=== PATIENT | female | born 1960 | race American Indian/Alaskan Native ===

== ENCOUNTER 2017-01-07 13:09 | Emergency (ER) | payer MEDICARE, OTHER ==
[2017-01-07 14:25] LABS: Basophils % (Auto) 0.2 % (0.0-1.8); Eosinophils % (Auto) 1.5 % (0.0-4.3); Hematocrit 41.5 % (30.3-42.9); Hemoglobin 13.5 gm/dl (10.1-14.3); Mean Corpuscular HGB Conc 33 % (30-34); Mean Corpuscular Hemoglobin 27 pg (28-32); Mean Corpuscular Volume 84 fl (79-97); Platelet Count 204 K/mm3 (140-440); Red Blood Count 4.96 M/mm3 (3.65-5.03); Red Cell Distribution Width 13.8 % (13.2-15.2); White Blood Count 11.5 K/mm3 (4.5-11.0)
[2017-01-07 14:25] LABS: Bilirubin,Urine NEG (Negative); Blood,Urine SM (Negative); Ketones,Urine NEG (Negative); Leukocyte Esterase,Urine NEG (Negative); Nitrite,Urine NEG (Negative); Protein,Urine <15 mg/dL mg/dL (Negative); Urobilinogen,Urine < 2.0 mg/dL (<2.0); WBC,Urine < 1.0 /HPF (0.0-6.0)
[2017-01-07 14:36] LABS: Alanine Aminotransferase 15 units/L (7-56); Albumin 4.4 g/dL (3.9-5); Alkaline Phosphatase 49 units/L (35-129); Anion Gap 16 mmol/L; BUN/Creatinine Ratio 18.75; Bilirubin,Total 0.3 mg/dL (0.1-1.2); Blood Urea Nitrogen 15 mg/dL (7-17); Calcium 10.2 mg/dL (8.4-10.2); Carbon Dioxide 25 mmol/L (22-30); Chloride 101.3 mmol/L (98-107); Glucose 93 mg/dL (65-100); Lipase 84 units/L (13-60); Potassium 4.4 mmol/L (3.6-5.0); Sodium 138 mmol/L (137-145); Total Protein 8.7 g/dL (6.3-8.2)
[2017-01-07 17:24] VITALS: BP 149/94
[2017-01-07] MEDS ORDERED: REGLAN PO ONE (18:58)
[2017-01-07] MEDS ORDERED: ALUM-MAG HYDROX-SIMETH 200-200-20MG/5ML PO ONE (18:58)
[2017-01-07] MEDS ORDERED: BENTYL PO ONE (18:58)
--- NOTE | 2017-01-07 18:59 | Emergency Department Report ---
ED General Adult HPI - General Chief complaint: Abdominal Pain Stated complaint: SHARP RT ABD PAIN /VOMITTING Time Seen by Provider: 01/07/17 18:50 Source: patient, RN notes reviewed, old records reviewed Mode of arrival: Ambulatory Limitations: No Limitations - History of Present Illness Initial comments: This is a 56-year-old female. She is previously unknown type. Patient comes to the ER today complaining of abdominal pain. Abdominal pain is epigastric, right upper quadrant and radiates to the back. Associated with a few episodes of nausea and vomiting. No chest pain. No shortness of breath. No diaphoresis. Of note, patient reports his pain has been present for over 6 years. Patient is status post cholecystectomy. Patient had an upper GI endoscopy performed in April 2014, which demonstrated a sliding hiatal hernia. In addition, the antrum demonstrated mild diffuse erythema. She also had a colonoscopy on April 2014, which demonstrated numerous hemorrhoids. Patient also had a gastric emptying study performed on April 2015 which was deemed to be normal. She also had a CAT scan performed in January 2015, which demonstrated changes consistent with prior cholecystectomy, but no acute disease. No lower abdominal discomfort, no vaginal discharge, no irritative or obstructive urinary symptoms. -: Gradual, year(s) Location: abdomen Radiation: back Severity scale (0 -10): 6 Quality: aching Consistency: intermittent Improves with: none Worsens with: none Associated Symptoms: denies: chest pain, cough, headaches, loss of appetite, malaise, shortness of breath, syncope, weakness - Related Data Home Medications Medication Instructions Recorded Confirmed Last Taken Losartan/Hydrochlorothiazide 100 mg PO DAILY 01/25/15 08/24/16 02/01/15 06:30 [Hyzaar 100-25 TAB] Nebivolol HCl [Bystolic] 5 mg PO DAILY 01/25/15 08/24/16 02/01/15 06:30 Ergocalciferol [Vitamin D2] 1 cap PO QWEEK 08/24/16 08/24/16 Unknown buPROPion [Wellbutrin] 100 mg PO DAILY 08/24/16 08/24/16 Unknown Previous Rx's Medication Instructions Recorded Last Taken Type Dicyclomine [Bentyl] 10 mg PO QID PRN #20 capsule 01/07/17 Unknown Rx Famotidine [Pepcid] 20 mg PO QDAY #30 tablet 01/07/17 Unknown Rx Metoclopramide [Reglan] 10 mg PO QID PRN #30 tablet 01/07/17 Unknown Rx Allergies Allergy/AdvReac Type Severity Reaction Status Date / Time levofloxacin [From Levaquin] Allergy Intermediate Hives Verified 01/07/17 13:49 morphine Allergy Hives Verified 01/07/17 13:49 ondansetron HCl [From Zofran] Allergy Hives Verified 01/07/17 13:49 Penicillins Allergy Rash Verified 01/07/17 13:49 Sulfa (Sulfonamide Allergy Rash Verified 01/07/17 13:49 Antibiotics) ED Review of Systems ROS: Stated complaint: SHARP RT ABD PAIN /VOMITTING Other details as noted in HPI Constitutional: denies: fever, malaise, weakness Eyes: denies: vision change ENT: denies: epistaxis Respiratory: denies: cough Cardiovascular: denies: chest pain Gastrointestinal: abdominal pain, nausea Genitourinary: denies: urgency, dysuria Musculoskeletal: back pain Skin: denies: lesions Neurological: weakness Psychiatric: as per HPI ED Past Medical Hx - Past Medical History Hx Hypertension: Yes (X 10 YRS, took bystolic) Hx Heart Attack/AMI: No Hx Diabetes: No Hx Liver Disease: Yes (+hepatitis C, h/o pancreatitis) Hx Renal Disease: No Hx Headaches / Migraines: Yes (MIGRAINES- NO MEDS) Hx Psychiatric Treatment: Yes (DEPRESSION) Hx Asthma: No Hx COPD: No Additional medical history: Hepatitis C, has taken medicine now non-detected - Surgical History Hx Coronary Stent: No Hx Pacemaker: No Hx Cholecystectomy: Yes Additional Surgical History: Csection x3; Back x3. PARTIAL HYSTERECTOMY - Social History Smoking Status: Current Every Day Smoker Substance Use Type: None - Medications Home Medications: Home Medications Medication Instructions Recorded Confirmed Last Taken Type Losartan/Hydrochlorothiazide 100 mg PO DAILY 01/25/15 08/24/16 02/01/15 06:30 History [Hyzaar 100-25 TAB] Nebivolol HCl [Bystolic] 5 mg PO DAILY 01/25/15 08/24/16 02/01/15 06:30 History Ergocalciferol [Vitamin D2] 1 cap PO QWEEK 08/24/16 08/24/16 Unknown History buPROPion [Wellbutrin] 100 mg PO DAILY 08/24/16 08/24/16 Unknown History Dicyclomine [Bentyl] 10 mg PO QID PRN #20 capsule 01/07/17 Unknown Rx Famotidine [Pepcid] 20 mg PO QDAY #30 tablet 01/07/17 Unknown Rx Metoclopramide [Reglan] 10 mg PO QID PRN #30 tablet 01/07/17 Unknown Rx ED Physical Exam - General Limitations: No Limitations General appearance: alert, in no apparent distress - Head Head exam: Present: atraumatic, normocephalic - Eye Eye exam: Present: normal appearance, EOMI. Absent: nystagmus - ENT ENT exam: Present: normal exam, normal orophraynx, mucous membranes moist, normal external ear exam - Neck Neck exam: Present: normal inspection, full ROM. Absent: tenderness, meningismus - Respiratory Respiratory exam: Present: normal lung sounds bilaterally. Absent: respiratory distress, wheezes, rales, rhonchi, stridor, chest wall tenderness - Cardiovascular Cardiovascular Exam: Present: regular rate, normal rhythm, normal heart sounds. Absent: bradycardia, tachycardia, irregular rhythm, systolic murmur, diastolic murmur, rubs, gallop - GI/Abdominal GI/Abdominal exam: Present: soft, tenderness (is minimal epigastric tenderness. There is no rebound, guarding or peritoneal signs.), normal bowel sounds. Absent: distended - Extremities Exam Extremities exam: Present: normal inspection, full ROM, normal capillary refill. Absent: tenderness, pedal edema, joint swelling, calf tenderness - Back Exam Back exam: Present: normal inspection, full ROM. Absent: tenderness, CVA tenderness (R), CVA tenderness (L), muscle spasm, paraspinal tenderness, vertebral tenderness - Neurological Exam Neurological exam: Present: alert, oriented X3, normal gait, other (Extraocular movements intact. Tongue midline. No facial droop. Facial sensation intact to light touch in the V1, V2, V3 distribution bilaterally. 5 and 5 strength in 4 extremities.. Sensation is intact to light touch in 4 extremities.). Absent : motor sensory deficit - Psychiatric Psychiatric exam: Present: normal affect, normal mood - Skin Skin exam: Present: warm, dry, intact, normal color. Absent: rash ED Course Vital Signs 01/07/17 01/07/17 13:45 17:20 Temperature 98.3 F 98.8 F Pulse Rate 89 71 Respiratory 18 18 Rate Blood Pressure 159/98 149/94 O2 Sat by Pulse 99 100 Oximetry - Reevaluation(s) Reevaluation #1: 01/07/17 20:13 Differential diagnosis: GERD, reflux, pancreatitis, irritable bowel syndrome, acute on chronic abdominal pain Assessment and plan: 56-year-old female who has chronic abdominal pain. She has had extensive and exhaustive GI workup. Minimally elevated lipase is appreciated. I have reassessed the patient multiple times while in the department. I have not detected any episodes of vomiting. She is tolerating liquid feeds. I doubt acute coronary syndrome given that pain has been present for 6 years. Her EKG is morphologically abnormal, but essentially unchanged from her prior EKG in 2013. She will be discharged with nonnarcotic, nonsedating pain medicine, instructions to follow up with outpatient primary care, gastroenterology. I don't believe she requires evaluation for ACS as her EKG is morphologically is unchanged and her symptoms have been present for 6 years, and she so clinically well-appearing in the ER. Multiple times while being assessed, the patient is noted to be playing and speaking in the site of the forearm. ED Medical Decision Making - Lab Data Result diagrams: 01/07/17 14:01 01/07/17 14:01 Vital Signs 01/07/17 01/07/17 13:45 17:20 Temperature 98.3 F 98.8 F Pulse Rate 89 71 Respiratory 18 18 Rate Blood Pressure 159/98 149/94 O2 Sat by Pulse 99 100 Oximetry Labs 01/07/17 01/07/17 01/07/17 14:01 14:01 Unknown WBC 11.5 H RBC 4.96 Hgb 13.5 Hct 41.5 MCV 84 MCH 27 L MCHC 33 RDW 13.8 Plt Count 204 Lymph % (Auto) 17.4 [place]row % (Auto) 6.7 Eos % (Auto) 1.5 Baso % (Auto) 0.2 Lymph # 2.0 [place]row # 0.8 Eos # 0.2 Baso # 0.0 Seg Neutrophils % 74.2 H Seg Neutrophils # 8.5 H Sodium 138 Potassium 4.4 Chloride 101.3 Carbon Dioxide 25 Anion Gap 16 BUN 15 Creatinine 0.8 Estimated GFR > 60 BUN/Creatinine Ratio 18.75 Glucose 93 Calcium 10.2 Total Bilirubin 0.3 AST 17 ALT 15 Alkaline Phosphatase 49 Total Protein 8.7 H Albumin 4.4 Albumin/Globulin Ratio 1.0 Lipase 84 H Urine Color Yellow Urine Turbidity Clear Urine pH 5.0 Ur Specific [place] 1.016 Urine Protein <15 mg/dl Urine Glucose (UA) Neg Urine Ketones Neg Urine Blood Sm Urine Nitrite Neg Urine Bilirubin Neg Urine Urobilinogen < 2.0 Ur Leukocyte Esterase Neg Urine WBC (Auto) < 1.0 Urine RBC (Auto) 2.0 U Epithel Cells (Auto) 1.0 - EKG Data When compared to previous EKG there are: no significant change 01/07/17 20:14 normal sinus, 63 bpm, poor R wave progression, abnormal EKG, but morphologically consistent with STEMI. Appears unchanged when compared to prior EKG from July 2013. Critical care attestation.: If time is entered above; I have spent that time in minutes in the direct care of this critically ill patient, excluding procedure time. ED Disposition Clinical Impression: Elevated lipase, Epigastric abdominal pain Disposition: DISCHARGED TO HOME OR SELFCARE Is pt being admited?: No Does the pt Need Aspirin: No Condition: Stable Instructions: Abdominal Pain (ED) Additional Instructions: Take the pain medication, nausea medication as directed. Avoid heavy and spicy foods. Avoid consumption of alcohol. All wall with a primary care doctor or tool engine lathe set up operator within the next week. Dr. Da Bravo is the tool engine lathe set up operator who evaluated you in 2013, 2014. Dr. Garay is another tool engine lathe set up operator. Dr. Palacios is a primary care doctor. Of note, EKG demonstrated nonspecific abnormalities. These have been constant since 2012. Aloe up with her primary care doctor or credit department manager within the next week for these. Dr. Benson is local credit department manager. Return to the ER right away with new pain, worsened pain, migration of pain, fevers or chills, intractable nausea or vomiting, inability to tolerate liquid feeds. Prescriptions: Dicyclomine [Bentyl] 10 mg PO QID PRN #20 capsule PRN Reason: Pain Famotidine [Pepcid] 20 mg PO QDAY #30 tablet Metoclopramide [Reglan] 10 mg PO QID PRN #30 tablet PRN Reason: Nausea Referrals: JUAN MIGUEL PALACIOS MD [Primary Care Provider] - 3-5 Days DA VASQUEZ MD [Staff Physician] - 3-5 Days JORDY GARAY MD [Staff Physician] - 3-5 Days VIKRAM BENSON MD [Staff Physician] - 3-5 Days
== END 2017-01-07 20:20 | disposition home or self-care (01) ==
LOC: ED 13:09
DX: R10.13 Epigastric pain (principal); R74.8 Abnormal levels of other serum enzymes; I10 Essential (primary) hypertension; G43.909 Migraine, unspecified, not intractable, without status migrainosus; F17.200 Nicotine dependence, unspecified, uncomplicated
CPT/HCPCS: 36415; 80053; 81001; 83690; 85025; 93005; 93010; 99283